=== PATIENT | female | born 1960 | race Caucasian/White ===

== ENCOUNTER → 2019-03-02 | Outpatient (CLI) | payer OTHER ==
--- NOTE | 2019-03-02 12:16 | Diagnostic Imaging Report ---
MRI of the right foot without contrast. History: Calcaneal bursitis. Bone spur. Wound at back of foot. Prior surgery. Pain worse with walking. Technique: Multiplanar multisequence MRI of the right foot without contrast Comparison: None Findings: No acute fracture, subluxation or avascular necrosis. Postsurgical screw tracts with associated postsurgical change through the posterior calcaneus. No osseous erosion. Marked thickening and midsubstance degeneration of the distal Achilles tendon with adjacent soft tissue edema and mild edema in Kager's fat. No focal fluid collection. No definite evidence of bursitis. No Achilles tendon tear or retraction. The plantar fascial tissues are intact. Scarring and attenuation of the anterior talofibular and calcaneofibular ligaments with small effusion and mild synovitis in the anterior lateral gutter. The remainder the visualized ligaments and tendons are intact. The visualized neurovascular bundles are intact. No talar dome osteochondral lesion. Small tibiotalar joint effusion and mild synovitis. Impression: Marked thickening and midsubstance degeneration of the distal Achilles tendon with adjacent soft tissue edema and mild edema in Kager's fat. No focal fluid collection. No definite evidence of bursitis. No Achilles tendon tear or retraction. Signed by: Dr. David Moffett M.D. on 03/02/2019 12:13 PM
== END ==
LOC: MRI 10:36
PROVIDERS: ATTEND Family Medicine
DX: M77.51 Other enthesopathy of right foot and ankle (principal)